=== PATIENT | male | born 1965 | race Caucasian/White ===

== ENCOUNTER 2021-02-13 18:15 | Outpatient (CLI) | payer BC ==
--- NOTE | 2021-02-13 21:35 | XRAY Report ---
PROCEDURE: Knee 3 View LT INDICATIONS: L KNEE PX TECHNIQUE: 3 views of the left knee(s) were acquired. COMPARISON: None. FINDINGS: Bones: No fractures or dislocations. No suspicious bony lesions. Soft tissues: No joint effusion. No suspicious soft tissue calcifications. IMPRESSION: No trauma found, source of pain is not seen. No joint effusion or intra-articular loose body is found. Reviewed by: Andrei Feng MD on 02/13/2021 9:33 PM PDT Approved by: Andrei Feng MD on 02/13/2021 9:33 PM PDT Station ID: [id number]
== END 2021-02-13 23:59 | disposition home or self-care (01) ==
LOC: DI.N 18:15
PROVIDERS: ATTEND Physician Assistant Medical
DX: M25.562 Pain in left knee (principal)

== ENCOUNTER 2022-06-20 08:01 | Outpatient (CLI) | payer BC, OTHER ==
--- NOTE | 2022-06-20 12:50 | Ultrasound Report ---
PROCEDURE: Abdomen Limited INDICATIONS: ELEVATED AST/ALT TECHNIQUE: Real-time focused scanning was performed of the abdomen, with image documentation. COMPARISON: None FINDINGS: The liver is slightly enlarged measuring 19.7 cm in length with a homogeneous echotexture. Within the lateral right hepatic lobe, there is a circumscribed round homogeneously hyperechoic mass measuring 2.7 x 2.8 x 2.4 cm. There is vascular flow surrounding the mass. No other liver lesions. The gallbladder is normal without stones, sludge, wall thickening, or pericholecystic fluid. No sonog raphic Grimaldo's sign per the technologist. The common duct is normal caliber at 4.8 mm. The proximal pancreas is heterogeneous but without mass. No ductal dilatation. The tail is obscured b y bowel gas. The right kidney is normal in size and morphology. No free fluid in the right upper quad rant. IMPRESSION: 1. Mild hepatomegaly. 2. 2.8 cm homogeneously hyperechoic right lobe liver mass, most likely hepatic hemangioma. Recommend confirmation with liver protocol MRI. 3. Normal gallbladder and biliary tree. Reviewed by: Elise Pino MD on 06/20/2022 12:48 PM PDT Approved by: Elise Pino MD on 06/20/2022 12:48 PM PDT Station ID: [id number]
== END 2022-06-20 08:02 | disposition home or self-care (01) ==
LOC: DI 08:01
PROVIDERS: ATTEND Physician Assistant
DX: R74.8 Abnormal levels of other serum enzymes (principal); R16.0 Hepatomegaly, not elsewhere classified

== ENCOUNTER 2022-09-17 00:13 | Emergency (ER) | payer OTHER ==
[2022-09-17 00:27] VITALS: BP 167/96
--- OUTSIDE RECORDS SUMMARY | 2022-09-17 00:28 | EXTERNAL MEDICAL SUMMARY RPT | Continuity of Care Document ---
:1965 Author Organization [facility] Address [address] [place] [address] Phone Allergies No information. Encounters No information. Functional Status No information. Immunizations No information. Medications No information. Problems date description facility 2022-07-09 07:11 Hepatomegaly, not elsewhere classified [facility] Procedures No information. Results/Labs test date author facility value unit interpret ation Result panel 1 (unknown) (no (unknown) (unknown) (no value) (units (unk nown) date) unknown) (unknown) (no (unknown) (unknown) [id number] (units (unkno wn) date) unknown) (unknown) (no (unknown) (unknown) 1. Elongated (units (u nknown) date) right hepatic lobe unknown) is consistent with Michelle's lobe morphology, (unknown) (no (unknown) (unknown) 07/09/22 (units (unkno wn) date) unknown) (unknown) (no (unknown) (unknown) [address] [place] [address] (units (unknown) date) unknown) (unknown) (no (unknown) (unknown) 2. 2.7 cm hepatic (units (unknown) date) hemangioma in the unknown) right hepatic lobe. (unknown) (no (unknown) (unknown) 2D FLASH (units (unkno wn) date) unknown) (unknown) (no (unknown) (unknown) 3. A few (units (unkno wn) date) incidental benign unknown) renal cysts. (unknown) (no (unknown) (unknown) Accession Number: (units (unknown) date) [id number] unknown) (unknown) (no (unknown) (unknown) Age/Sex: 56 / M (units (unknown) date) Date of Service: unknown) (unknown) (no (unknown) (unknown) STEPHANY Mcclendon (units ( unknown) date) [id number] unknown) (unknown) (no (unknown) (unknown) Approved by: (units (u nknown) date) gómez RamiresDevin Escobedo on 07/09/2022 at 11:10 (unknown) (no (unknown) (unknown) Bones and soft (units (unknown) date) tissues: No unknown) ventral hernias. Bone marrow is normal in overall (unknown) (no (unknown) (unknown) Both (units (unkno wn) date) unknown) (unknown) (no (unknown) (unknown) Bowel and (units (unkn own) date) peritoneum: unknown) Unenhanced bowel loops are normal in caliber. No free (unknown) (no (unknown) (unknown) COMPARISON: None. (units (unknown) date) unknown) (unknown) (no (unknown) (unknown) Coronal HASTE, (units (unknown) date) axial 2D FLASH in- unknown) and [id number]; axial breath-hold T2 FSE. (unknown) (no (unknown) (unknown) : 1965 (units (unknown) date) Acct:[id number] unknown) (unknown) (no (unknown) (unknown) Dictated by: (units (u nknown) date) rick Ramires M.D. on 07/09/2022 at 10:59 (unknown) (no (unknown) (unknown) Dynamic (units (unkno wn) date) unknown) (unknown) (no (unknown) (unknown) FINDINGS: (units (unkn own) date) unknown) (unknown) (no (unknown) (unknown) Gallbladder is (units (unknown) date) normal without unknown) stones. Biliary system is non dilated. Pancreas (unknown) (no (unknown) (unknown) IMPRESSION: (units (un known) date) unknown) (unknown) (no (unknown) (unknown) INDICATIONS: (units (u nknown) date) Hepatomegaly, not unknown) elsewhere classified (unknown) (no (unknown) (unknown) Image quality: (units (unknown) date) Excellent. unknown) (unknown) (no (unknown) (unknown) [facility] (units (unknown) date) unknown) (unknown) (no (unknown) (unknown) Loc: MRI (units (unkno wn) date) unknown) (unknown) (no (unknown) (unknown) Lung bases: No (units (unknown) date) basal pleural unknown) effusions. Heart size is normal. (unknown) (no (unknown) (unknown) Magnetic (units (unkno wn) date) Resonance Report unknown) (unknown) (no (unknown) (unknown) Nodes and (units (unkn own) date) vessels: No unknown) retroperitoneal or mesenteric adenopathy by size (unknown) (no (unknown) (unknown) Ordering (units (unkno wn) date) Provider: unknown) Akilah Mcduffie PIPEFITTER HELPER-C (unknown) (no (unknown) (unknown) PROCEDURE: MR (units ( unknown) date) ABDOMEN WO/W CON unknown) (unknown) (no (unknown) (unknown) Patient: (units (unkno wn) date) Alvina Nelsonian D unknown) MR#: [id number] (unknown) (no (unknown) (unknown) Procedure: MR (units ( unknown) date) abdomen wo/w con unknown) (unknown) (no (unknown) (unknown) Signed (units (unkno wn) date) unknown) (unknown) (no (unknown) (unknown) Solid organs: (units ( unknown) date) Right lobe of the unknown) liver is elongated measuring 21.9 cm in (unknown) (no (unknown) (unknown) TECHNIQUE: (units (unk nown) date) unknown) (unknown) (no (unknown) (unknown) and inferior vena (units (unknown) date) cava are normal in unknown) size. (unknown) (no (unknown) (unknown) axial VIBE during (units (unknown) date) the administration unknown) of contrast; post-contrast coronal VIBE or (unknown) (no (unknown) (unknown) cm T2 (units (unkno wn) date) unknown) (unknown) (no (unknown) (unknown) criteria. Aorta (units (unknown) date) unknown) (unknown) (no (unknown) (unknown) cysts are present (units (unknown) date) in each kidney. No unknown) enhancing mass. (unknown) (no (unknown) (unknown) diffusion (units (unkn own) date) unknown) (unknown) (no (unknown) (unknown) fluid. (units (unkno wn) date) unknown) (unknown) (no (unknown) (unknown) hyperintense mass (units (unknown) date) in the caudal unknown) aspect of segment six which demonstrates (unknown) (no (unknown) (unknown) in morphology. (units (unknown) date) Spleen is normal unknown) in size and enhancement. No adrenal nodules. (unknown) (no (unknown) (unknown) is normal (units (unkn own) date) unknown) (unknown) (no (unknown) (unknown) kidneys (units (unkno wn) date) demonstrate normal unknown) size and enhancement, without hydronephrosis. A few (unknown) (no (unknown) (unknown) length. The (units (un known) date) unknown) (unknown) (no (unknown) (unknown) liver margin is (units (unknown) date) smooth. The liver unknown) is normal in signal. There is an ovoid 2.7 (unknown) (no (unknown) (unknown) nodular (units (unkno wn) date) unknown) (unknown) (no (unknown) (unknown) normal (units (unkno wn) date) unknown) (unknown) (no (unknown) (unknown) normal. (units (unkno wn) date) unknown) (unknown) (no (unknown) (unknown) otherwise (units (unkn own) date) unknown) (unknown) (no (unknown) (unknown) peripheral (units (unk nown) date) discontinuous unknown) enhancement with delayed wash-in. The liver is (unknown) (no (unknown) (unknown) signal. (units (unkno wn) date) unknown) (unknown) (no (unknown) (unknown) small (units (unkno wn) date) unknown) (unknown) (no (unknown) (unknown) variant. The (units (u nknown) date) remainder of the unknown) liver is normal. (unknown) (no (unknown) (unknown) weighted imaging (units (unknown) date) and ADC may be unknown) performed. (unknown) (no (unknown) (unknown) with fat (units (unkno wn) date) saturation from unknown) the hepatic dome to the iliac crests. Optional Social History No information. Vital Signs No information.
--- NOTE | 2022-09-17 00:29 | ED Physician Documentation ---
PD HPI HEENT - Stated complaint Stated Complaint: LT SIDE TOOTH PX - Chief complaint Chief Complaint: Heent - History obtained from History obtained from: Patient - History of Present Illness Timing - onset: Enter time (06:00) Timing - details: Gradual onset Pain level now: 8 Location: Tooth Improves: Nothing Associated symptoms: No: Fever Recently seen: Not recently seen - Additional information Additional information: HPI from patient. Patient c/o toothache, upper left molar, gradual onset this morning at approximately 6 AM without specific inciting incident. Pain initially relieved with OTC analgesics (advil), but pain has become steadily worse this evening, no longer responding to the advil. Denies fever. Denies h/o similar symptoms Review of Systems Constitutional: denies: Fever Throat: reports: Dental pain / toothache PD PAST MEDICAL HISTORY - Past Medical History : Other (prostate CA) - Present Medications Home Medications: Ambulatory Orders Medication Instructions Recorded Confirmed Amox/Clav 875/125 [Augmentin 1 tablet PO Q12H 7 Days #14 tablet 09/17/22 875/125 Tab] Leuprolide [Lupron] 22.5 mg IM 09/17/22 traMADol [Ultram] 50 - 100 mg PO Q6H PRN #20 tablet 09/17/22 - Allergies Allergies/Adverse Reactions: Allergies Allergy/AdvReac Type Severity Reaction Status Date / Time No Known Drug Allergies Allergy Verified 09/17/22 00:22 PD ED PE NORMAL - Vitals Vital signs reviewed: Yes - General General: Alert and oriented X 3, No acute distress, Well developed/nourished PD ED PE EXPANDED - HEENT HEENT: Other (TTP left maxillary second molar without gingival swelling, fluctuance. Tooth appears intact, no obvious cracks noted) Results - Vitals Vitals: Oxygen O2 Source Room air PD Medical Decision Making - ED course Complexity details: considered differential, d/w patient ED course: Patient was told to avoid acetaminophen due to liver problems related to prostate CA treatment, and thus vicodin , percocet inappropriate options. Furthermore, he thinks he recalls very unpleasant side effect with oxycodone. We discussed tramadol; he has not had this medication before and it seems the appropriate medication for this situation. He is given dose of augmentin in ED and rx for tramadol and augmentin are e-prescribed to [facility] in [place] Departure - Departure Disposition: 01 Home, Self Care Clinical Impression: Toothache Condition: Good Instructions: ED Tooth Pain Prescriptions: Amox/Clav 875/125 [Augmentin 875/125 Tab] 1 tablet PO Q12H 7 Days #14 tablet traMADol [Ultram] 50 - 100 mg PO Q6H PRN #20 tablet PRN Reason: Pain Comments: Prescriptions for an antibiotic (Augmentin) and a pain medication (tramadol, which is a mild opiate/narcotic pain medication) has been electronically submitted to the [facility] pharmacy in [place]. As we discussed, I do not see any overt evidence of an infection on the exam, but dental infections sometimes initially presented with dental pain and only later develop visible swelling. Because of this, you are given the first dose of antibiotic in the emergency department and the prescription for the same antibiotic for 1 week As we discussed, you should pursue follow-up with a dentist. I am prescribing a short course of narcotic pain medication for you. These are potentially dangerous and addictive medications that should be used carefully. These medications may constipate you. Take an fzhj-lcz-htjjssk stool softener (docusate) twice daily with plenty of water while taking these medications. If you go 24 hours without a bowel movement, take [id number] miralax, per package instructions. Do not drink or drive while taking these medications. If you received narcotic or sedating medications while in the emergency department, do not drive for 24 hours. Store this medication in a safe, secure place and out of reach of children. It is a violation of federal law to give or sell this medication to another person or to use in a manner other than prescribed. The ED will not refill narcotic prescriptions, including prescriptions lost or stolen. To dispose of unwanted medications: 1. [facility] at [address] in [place] has a medication drop box. They accept prescription medications (in pill form) Thursday through Thursday 9:00 a.m. to 5:00 p.m. 2. [facility] accepts prescription medications (in pill form only) for disposal year round. Call for more information. 3. Contact the [facility] for the next [facility] sponsored prescription drug collection event. , [phone], or [phone]; Discharge Date/Time: 09/17/22 00:45
[2022-09-17] MEDS ORDERED: traMADol 50 MG TABLET PO STA (00:53)
[2022-09-17] MEDS ORDERED: AMOX/CLAV 875 MG/125 MG TABLET PO STA (00:54)
== END 2022-09-17 00:45 | disposition home or self-care (01) ==
LOC: ED 00:13
DX: K08.89 Other specified disorders of teeth and supporting structures (principal); C61 Malignant neoplasm of prostate
CPT/HCPCS: 99282; 99283; A9270